=== PATIENT | male | born 1950 | race Caucasian/White ===

== ENCOUNTER 2016-12-12 09:47 | Outpatient (CLI) | payer MEDICARE ==
--- NOTE | 2016-12-12 14:17 | DEXA Report ---
DEXA SCAN: 12/12/2016 CLINICAL INDICATION: Hypogonadism. TECHNIQUE: Dual energy x-ray absorptiometry (DXA) was performed on a [employer] system. Regions measured are the AP spine, femoral neck, and, if needed, forearm. COMPARISON: None. In accordance with the International Society for Clinical Densitometry (ISCD) guidelines, data from previous exams may be reanalyzed using current recommendations and techniques. This is done to allow a more accurate basis for comparison with the current study. FINDINGS: The data for the lumbar spine is as follows: REGION BMD (g/cm/cm) T-SCORE Z-SCORE L1 1.102 -0.5 -0.2 L2 1.167 -0.6 -0.3 L3 1.225 -0.1 0.2 L4 1.237 0.0 0.3 TOTAL 1.189 -0.3 0.0 NOTE: All evaluable vertebrae are used for classification. The data for the hip is as follows: REGION BMD (g/cm/cm) T-SCORE Z-SCORE Neck 1.032 -0.3 0.7 TOTAL 1.133 0.2 0.7 NOTE: The femoral neck or total proximal femur, whichever is lowest, is used for classification. IMPRESSION: THE WHO CLASSIFICATION BASED ON THE INTERNATIONAL REFERENCE STANDARD IS NORMAL. THE FRACTURE RISK IS NOT INCREASED. RECOMMENDATION: Patients with diagnosis of osteoporosis or osteopenia should have regular bone mineral density assessment. For those eligible for Medicare, routine testing is allowed once every 2 years. Testing frequency can be increased for patients who have rapidly progressing disease or for those who are receiving medical therapy to restore bone mass. COMMENT: World Health Organization (WHO) definitions for osteoporosis and osteopenia: NORMAL BMD: T-score at -1.0 or higher, fracture risk is low. OSTEOPENIA BMD: T-score between -1.0 and -2.5, fracture risk is increased. OSTEOPOROSIS BMD: T-score at -2.5 or lower, fracture risk high. National Osteoporosis Foundation recommends: 1. Obtain adequate dietary calcium (at least 1200 mg per day) and vitamin D (400 -800 international units per day). 2. Participate, as appropriate, in regular weightbearing and muscle- strengthening exercise. 3. Avoid tobacco use and reduce alcohol and caffeine intake. 4. For more detailed information see the website at www.NOF.org. MTDD
== END 2016-12-12 09:48 | disposition home or self-care (01) ==
LOC: DI 09:47
PROVIDERS: ATTEND Family Medicine
DX: E29.1 Testicular hypofunction (principal); Z79.899 Other long term (current) drug therapy; E55.9 Vitamin D deficiency, unspecified; M16.0 Bilateral primary osteoarthritis of hip
CPT/HCPCS: 77080

== ENCOUNTER 2017-03-04 12:02 | Outpatient (CLI) | payer MEDICARE ==
[2017-03-04 20:04] LABS: HEMOGLOBIN A1C 0.59 g/dL
== END 2017-03-04 12:03 | disposition home or self-care (01) ==
LOC: LAB.WCP 12:02
PROVIDERS: ATTEND Family Medicine
DX: E11.9 Type 2 diabetes mellitus without complications (principal)
CPT/HCPCS: 36415; 83036

== ENCOUNTER 2017-12-05 06:16 | Day surgery (SDC) | payer MEDICARE ==
[2017-12-05] MEDS ORDERED: LIDO GARGLE 30 ML BOTTLE ONE ×2 (07:03→07:28)
[2017-12-05] MEDS ORDERED: LACTATED RINGERS 1,000 ML IV ONE (07:13)
[2017-12-05 07:15] LABS: BASOPHILS % (AUTO) 0.7 %; EOSINOPHILS # (AUTO) 0.1 10^3/uL (0.0-0.7); EOSINOPHILS % (AUTO) 1.2 %; HGB - HEMOGLOBIN 13.5 g/dL (14.0-18.0); LYMPHOCYTES # (AUTO) 1.3 10^3/uL (1.5-3.5); LYMPHOCYTES % (AUTO) 19.4 %; MEAN CORPUSCULAR HEMOGLOBIN 31.2 pg (27.0-31.0); MEAN CORPUSCULAR HGB CONC 33.8 g/dL (32.0-36.0); MEAN CORPUSCULAR VOLUME 92.4 fL (80.0-94.0); MEAN PLATELET VOLUME 8.1 fL (7.4-11.4); MONOCYTES # (AUTO) 0.6 10^3/uL (0.0-1.0); MONOCYTES % (AUTO) 8.3 %; NEUTROPHILS # (AUTO) 4.8 10^3/uL (1.5-6.6); NEUTROPHILS % (AUTO) 70.4 %; PLT - PLATELET COUNT 275 10^3/uL (130-450); RED BLOOD COUNT 4.33 10^6/uL (4.70-6.10); RED CELL DISTRIBUTION WIDTH 13.8 % (12.0-15.0); WHITE BLOOD COUNT 6.8 x10^3/uL (4.8-10.8)
[2017-12-05 07:32] LABS: CALCIUM 8.8 mg/dL (8.5-10.3); CREATININE 0.9 mg/dL (0.6-1.2)
[2017-12-05] MEDS ORDERED: LIDO GARGLE 30 ML BOTTLE PO ONE (07:44)
[2017-12-05] MEDS ORDERED: MIDAZOLAM 2 MG/2 ML VIAL IVP ONE (08:28)
[2017-12-05] MEDS ORDERED: PROPOFOL 200 MG/20 ML VIAL IVP ONE (08:28)
[2017-12-05] MEDS ORDERED: fentaNYL 100 MCG/2 ML VIAL IVP ONE (08:28)
[2017-12-05 08:51] VITALS: BP 133/74
== END 2017-12-05 06:17 | disposition home or self-care (01) ==
LOC: SDS 06:16
PROVIDERS: ATTEND Internal Medicine Gastroenterology
PROC: 0DJD8ZZ Inspection of Lower Intestinal Tract, Via Natural or Artificial Opening Endoscopic (ICD-10-PCS; principal; 2017-12-05 07:30)
PROC: 0DB68ZX Excision of Stomach, Via Natural or Artificial Opening Endoscopic, Diagnostic (ICD-10-PCS; 2017-12-05 07:30)
DX: Z12.11 Encounter for screening for malignant neoplasm of colon (principal); K21.9 Gastro-esophageal reflux disease without esophagitis; K31.9 Disease of stomach and duodenum, unspecified; I10 Essential (primary) hypertension; E11.9 Type 2 diabetes mellitus without complications; G47.30 Sleep apnea, unspecified; Z79.82 Long term (current) use of aspirin; Z79.84 Long term (current) use of oral hypoglycemic drugs
CPT/HCPCS: 36415; 43239; 80048; 85025; 87081; 93005; A9270; G0105; J7120; 88305

== ENCOUNTER 2019-03-30 08:00 | Outpatient (CLI) | payer MEDICARE ==
[2019-03-30 12:41] LABS: CALCIUM 9.3 mg/dL (8.5-10.3)
[2019-03-30 12:52] LABS: HB2 TOTAL 14.1 g/dL; HEMOGLOBIN A1C 0.57 g/dL; HEMOGLOBIN A1C % 5.9 % (4.6-6.2)
== END 2019-03-30 23:59 | disposition home or self-care (01) ==
LOC: LAB.WCP 08:00
PROVIDERS: ATTEND Family Medicine
DX: F41.9 Anxiety disorder, unspecified (principal); E78.5 Hyperlipidemia, unspecified; I10 Essential (primary) hypertension; Z79.891 Long term (current) use of opiate analgesic
CPT/HCPCS: 36415; 80048; 83036

== ENCOUNTER 2020-03-17 09:58 | Outpatient (CLI) | payer MEDICARE ==
--- NOTE | 2020-03-17 11:14 | Ultrasound Report ---
PROCEDURE: Aorta Screening INDICATIONS: NICOTINE ADDICTION IN REMISSION TECHNIQUE: Real time scanning was performed of the aorta and iliac arteries, with image documentatio n. COMPARISON: FINDINGS: Aorta: Proximal aortic diameter measures 2.8 x 3.4 cm. Mid-aorta measures 2.3 x 2.3 cm. Distal aor tic diameter is 2.3 x 2.4 cm. Iliac arteries: Right common iliac artery measures 1.2 cm. Left common iliac artery measures 1.2 cm . IMPRESSION: Focal ectasia with maximal axial dimension of the proximal aorta 2.8 x 3.4 cm, with caliber of the ao rta more inferiorly in the iliac vessels normal. Reviewed by: Stu Ocampo MD on 03/17/2020 11:13 AM PDT Approved by: Stu Ocampo MD on 03/17/2020 11:13 AM PDT Station ID: [id number]
== END 2020-03-17 09:59 | disposition home or self-care (01) ==
LOC: DI 09:58
PROVIDERS: ATTEND Family Medicine
DX: Z12.2 Encounter for screening for malignant neoplasm of respiratory organs (principal); I77.810 Thoracic aortic ectasia; F17.201 Nicotine dependence, unspecified, in remission
CPT/HCPCS: 76706

== ENCOUNTER 2020-05-04 12:20 | Outpatient (CLI) | payer MEDICARE | END 2020-05-04 12:21 | disposition home or self-care (01) | LOC: COV 12:20 | PROVIDERS: ATTEND Family Medicine | DX: R05 Cough (principal); M79.10 Myalgia, unspecified site; R53.83 Other fatigue; J02.9 Acute pharyngitis, unspecified; R09.81 Nasal congestion; Z20.828 Contact with and (suspected) exposure to other viral communicable diseases ==

== ENCOUNTER 2021-02-21 11:15 | Outpatient (CLI) | payer MEDICARE ==
[2021-02-21 18:12] LABS: CALCIUM 9.6 mg/dL (8.5-10.3); POTASSIUM 4.3 mmol/L (3.5-5.0)
[2021-02-21 20:25] LABS: ESTIMATED AVERAGE GLUCOSE 128 mg/dL (70-100); HEMOGLOBIN A1c% 6.1 % (4.27-6.07)
== END 2021-02-21 23:59 | disposition home or self-care (01) ==
LOC: LAB.WCP 11:15
PROVIDERS: ATTEND Family Medicine
DX: E11.9 Type 2 diabetes mellitus without complications (principal)
CPT/HCPCS: 36415; 80048; 83036

== ENCOUNTER 2023-11-15 07:04 | Day surgery (SDC) | payer MEDICARE ==
[2023-11-15] MEDS: LACTATED RINGERS 1,000 ML IV ONE ×2 (07:19→08:52)
[2023-11-15] MEDS ORDERED: LIDOCAINE-MPF 2% 5 ML VIAL ONE (07:29)
[2023-11-15] MEDS ORDERED: PROPOFOL 200 MG/20 ML VIAL IVP ONE (07:29)
--- NOTE | 2023-11-15 07:56 | ANESTHESIA ---
Pre-Anesthesia VS, & Labs - Diagnosis Screening - Procedure Colonoscopy Vital Signs: Temp Pulse Resp BP Pulse Ox O2 Flow Rate 36.3 C L 82 14 152/73 H 99 11/15/23 07:20 11/15/23 07:20 11/15/23 07:20 11/15/23 07:20 11/15/23 07:20 Height: 6 ft 2 in Weight (kg): 81 kg Body Mass Index: 22.9 BMI Classification: Normal - Lab Results Current Lab Results: Laboratory Tests 11/15/23 07:35: POC Whole Bld Glucose 147 H Home Medications and Allergies Home Medications: Ambulatory Orders Aspirin [[place]] 81 mg PO 11/15/23 Gabapentin [Neurontin] 300 mg PO HS 11/15/23 Atenolol 50 mg PO BID 12/25/12 Guanfacine HCl [Tenex] 2 mg PO DAILY 12/25/12 Metformin HCl [Glucophage Xr] 1,000 mg PO BID 12/25/12 Niacin (Inositol Niacinate) [Niacin 500 mg Capsule] 500 mg PO BID 12/25/12 Omeprazole [PriLOSEC] 20 mg PO DAILY 12/25/12 Simvastatin [Zocor] 20 mg PO QPM 12/25/12 hydroCHLOROthiazide [Hydrodiuril] 25 mg PO DAILY 12/25/12 lisinopriL [Zestril] 40 mg PO DAILY 12/25/12 Zolpidem [Ambien] 10 mg PO HS 04/20/13 Amitriptyline HCl 1.5 tab PO QPM 10/20/15 Aspirin [Aspir-Low] 81 mg PO DAILY 10/20/15 Fluocinolone/Shower Cap [Fluocinolone 0.01% Scalp Oil] 118.28 ml TP DAILY 10/20/15 Hydrocodone/Acetaminophen [Hydrocodon-Acetaminoph 7.5-325] 1 each PO Q6HR PRN 10/20/15 LORazepam [Ativan] 0.5 mg PO BID PRN 10/20/15 Insulin NPH Human Isophane [Humulin N] 10 units SQ DAILY 12/05/17 Aspirin [Vazalore] 81 mg PO 11/15/23 Gabapentin [Neurontin] 300 mg PO HS 11/15/23 Allergies/Adverse Reactions: Allergies Allergy/AdvReac Type Severity Reaction Status Date / Time topiramate [From Topamax] AdvReac wt loss Verified 12/05/17 07:22 and not feeling well. Anes History & Medical History - Anesthetic History Anesthesia Complications: reports: No previous complications - Medical History Cardiovascular: reports: Hypertension Pulmonary: reports: Sleep apnea, CPAP use Gastrointestinal: reports: GERD Urinary: reports: None Musculoskeletal: reports: None Endocrine/Autoimmune: reports: Type 2 diabetes Skin: reports: Eczema Smoking Status: Former smoker - Surgical History General: reports: Colonoscopy Eyes Ears Nose Throat (EENT): reports: Cataracts Orthopedic: reports: Hip replacement Exam Dental: WNL, Dentures full Upper Mouth Opening: Greater than 4 Fingerbreadths Mallampati classification: II Thyromental Distance: 4-6 cm Respiratory: Lungs clear, Normal breath sounds, No respiratory distress, No accessory muscle use Cardiovascular: Regular rate Extremities: No clubbing, No cyanosis Mental/Cognitive Status: Alert/Oriented X3, Normal for patient Cognitive Status: Within normal limits Plan Anesthesia Type: MAC Consent for Procedure(s) Verified and Reviewed: Yes Code Status: Attempt Resuscitation ASA classification: 2-Mild systemic disease Is this case an emergency?: No
[2023-11-15] MEDS ORDERED: PHENYLEPHRINE HCL 0.5 MG/5 ML AMPULE ONE ×2 (08:20→08:27)
[2023-11-15] MEDS: SIMETHICONE *(INFANT SUSP)* 40 MG/0.6 ML BOTTLE PO ONE (08:26)
[2023-11-15 09:08] VITALS: BP 107/71; O2SAT 98
--- NOTE | 2023-11-15 15:10 | ANESTHESIA POST OP EVALUATION ---
Anesthesia Post Eval - Post Anesthesia Eval Vitals: Last Vital Signs Temp 36 C L 11/15/23 08:50 Pulse 73 11/15/23 09:00 Resp 16 11/15/23 09:00 BP 107/71 11/15/23 09:00 Pulse Ox 98 11/15/23 09:00 O2 Flow Rate CV Function Including HR & BP: Stable Pain Control: Satisfactory Nausea & Vomiting: Negative Mental Status: Baseline Respiratory Status: Airway Patent Hydration Status: Satisfactory Anesthesia Complications: None
== END 2023-11-15 07:05 | disposition home or self-care (01) ==
LOC: SDS 07:04
PROVIDERS: ATTEND Surgery
PROC: 0DBH8ZZ Excision of Cecum, Via Natural or Artificial Opening Endoscopic (ICD-10-PCS; 2023-11-15)
PROC: 0DBK8ZZ Excision of Ascending Colon, Via Natural or Artificial Opening Endoscopic (ICD-10-PCS; principal; 2023-11-15 08:30)
DX: Z12.11 Encounter for screening for malignant neoplasm of colon (principal); D12.0 Benign neoplasm of cecum; D12.2 Benign neoplasm of ascending colon; Z80.0 Family history of malignant neoplasm of digestive organs; E11.9 Type 2 diabetes mellitus without complications; Z79.4 Long term (current) use of insulin; Z79.84 Long term (current) use of oral hypoglycemic drugs; I11.0 Hypertensive heart disease with heart failure; G47.33 Obstructive sleep apnea (adult) (pediatric); Z87.891 Personal history of nicotine dependence
CPT/HCPCS: 45380; A9270; J2372; J7120